=== PATIENT | male | born 1970 | race Native Hawaiian/Other Pacific Islander ===

== ENCOUNTER 2021-09-01 21:03 | Emergency (ER) | payer OTHER ==
[~2021-09-01] VITALS: Ht 188 cm; Wt 132.5 kg
[2021-09-01 21:32] LABS: PLATELET COUNT 168 K/uL (142-355)
[2021-09-01 21:43] LABS: POTASSIUM 4.2 mmol/L (3.6-5.2)
[2021-09-01 23:30] VITALS: BP 120/60; TEMP 98.2
[2021-09-02] MEDS ORDERED: ELIQUIS5 MG PO (12:34)
[2021-09-02] MEDS ORDERED: BENADRYL ALLERG25 MG PO (12:35)
[2021-09-02] MEDS ORDERED: CLON1TAB18 PO (12:36)
[2021-09-02] MEDS ORDERED: DIVALPROEX500 MG PO (12:37)
[2021-09-02] MEDS ORDERED: GABA300C2 PO (12:38)
[2021-09-02] MEDS ORDERED: ZIPRASIDONE HCL80 MG PO (12:39)
[2021-09-02] MEDS ORDERED: IMODIUM A-D2 MG PO (12:48)
[2021-09-02] MEDS ORDERED: ISOS60TA6 PO (13:03)
[2021-09-02] MEDS ORDERED: MIRALAX17 GM/SCOO PO (13:03)
[2021-09-02] MEDS ORDERED: MS CONTIN15 MG PO (13:04)
[2021-09-02] MEDS ORDERED: MULTIVITAMI1 PO (13:05)
[2021-09-02] MEDS ORDERED: FLUOXETINE40 MG PO (13:05)
[2021-09-02] MEDS ORDERED: DAILY PROBIOTI250 MG PO (13:06)
[2021-09-02] MEDS ORDERED: VITAMIN D35000 UNI1 PO (13:07)
[2021-09-02] MEDS ORDERED: XTAMPZA ER27 MG PO (13:08)
== END 2021-09-01 23:30 | disposition still patient (30) ==
LOC: ED 21:03
PROVIDERS: Emergency Medicine
DX: F43.10 Post-traumatic stress disorder, unspecified (principal); F31.89 Other bipolar disorder; R45.1 Restlessness and agitation; Z11.52 Encounter for screening for COVID-19; Z04.6 Encounter for general psychiatric examination, requested by authority
CPT/HCPCS: 36415; 80053; 85027; 87635; 93005; 99283; U0003